=== PATIENT | female | born 1945 | race Caucasian/White ===

== ENCOUNTER 2020-03-30 09:48 | Emergency (ER) | payer OTHER, BC ==
--- NOTE | 2020-03-30 09:52 | PDOC ---
History of Present Illness - General Chief Complaint: Bleeding from Anus Stated Complaint: RECTAL BLEEDING Time Seen by Provider: 03/30/20 09:52 - History of Present Illness Initial Comments: 03/30/20 15:56 Chief complaint: Rectal bleeding HPI: Patient has been constipated for 4 days, straining to defecate without results, while on the toilet this morning noticed drops of bright red blood per rectum. Complains of pain in the rectal area well straining to defecate. Has been prescribed MiraLAX and stool softeners, but has not been taking them recently. Review of systems: No fever/chills, headache, URI symptoms, sore throat, cough, chest pain, shortness of breath, abdominal pain, nausea, vomiting, visual or focal neurologic symptoms, unsteadiness of gait. Past medical history: GERD/gastritis, high blood pressure, anxiety, depression, UTI diagnosed yesterday in the emergency room and begun on Keflex. Social history: Lives with family, no tobacco alcohol or nonprescription drugs. Family history: Reviewed and noncontributory Physical exam: Alert and oriented well-developed well-nourished no acute distress cooperative Afebrile, vital signs normal No pallor or icterus. PERRLA, ENT clear Neck supple without bruit mass or nodes Lungs clear, full breath sounds bilaterally, no wheezes rales or rhonchi CV S1-S2 normal without murmur rub or gallop pulses full and symmetric no JVD or edema no bruits no tachycardia Abdomen nondistended, bowel sounds normal. Soft without mass tenderness organomegaly. No CVAT Rectal exam: There are irritated external hemorrhoids visible, with some bleeding. There are palpable internal hemorrhoids as well. There is formed stool that feels the rectum just above the tip of the finger. There is no impaction. Stool itself is light brown, trace guaiac positive Neurological intact Impression: Constipation, bleeding hemorrhoids Plan: Symptomatic treatment of constipation, hemorrhoids, and GI follow-up. Past History - Medical History Allergies/Adverse Reactions: Allergies Allergy/AdvReac Type Severity Reaction Status Date / Time No Known Allergies Allergy Verified 03/30/20 09:49 Home Medications: Ambulatory Orders Amlodipine Besylate [Norvasc -] 5 mg PO DAILY 02/21/20 Cephalexin [Keflex] 500 mg PO TID #7 capsule 03/29/20 Acetaminophen W/ Codeine #3 [Tylenol # 3] 1 - 2 combo PO Q6H PRN #12 tablet MDD 6 03/30/20 Docusate Sodium [Colace] 100 mg PO TID #100 capsule 03/30/20 Hydrocortisone Acetate [Anusol Hc Suppository -] 25 mg RC DAILY #14 supp.rect 03/30/20 Lorazepam [Ativan] 1 mg PO ASDIR PRN 03/30/20 Mirtazapine [Remeron -] 15 mg PO DAILY 03/30/20 Polyethylene Glycol 3350 [Miralax (For Bowel Prep) -] 17 gm PO DAILY #1 bottle 03/30/20 Anemia: No Asthma: No Cancer: No Cardiac Disorders: Yes (MINOR BLOCAGE) CVA: Yes (MINI STROKE 2018) COPD: No CHF: No Dementia: No Diabetes: No GI Disorders: Yes (WT LOSS, LOSS OF APPITITE) Disorders: No HTN: Yes Hypercholesterolemia: Yes Liver Disease: No Psychiatric Problems: Yes Seizures: No Thyroid Disease: No - Surgical History Abdominal Surgery: No Appendectomy: No Cardiac Surgery: No Cholecystectomy: No Lung Surgery: No Neurologic Surgery: No Orthopedic Surgery: No - Psycho-Social/Smoking History Smoking History: Never smoked Have you smoked in the past 12 months: No ED Treatment Course - LABORATORY CBC & Chemistry Diagram: 03/30/20 10:10 03/30/20 16:05 Medical Decision Making - Medical Decision Making 03/30/20 16:02 Laxatives and enema were administered. The patient did not tolerate the enema well and it was discontinued with half the solution infused. She continues to become more agitated. Repeat rectal exam shows prolapsed hemorrhoids but otherwise unchanged. Repeat abdominal exam shows that abdomen remains soft and nontender without mass organomegaly. IV hydration will be attempted. Labs were drawn. Mild anxiolytic and analgesic administered. 03/30/20 18:23 CBC and chemistry showed no significant abnormalities. Stool is medium brown, trace heme. The patient was given IV fluids and 2 mg of morphine intravenously, which greatly improved her agitation and pain control. Spoke at length with the and son. Further history of anxiety and panic attacks was obtained. It was explained that the patient's constipation will need to be extensively addressed by her foundry worker general Dr. Claros. In the meantime, an intense regimen of increased fluid intake, increased walking and other exercise, increase dietary fiber and stool softeners, as well as hemorrhoid medications. She is discharged with family, relatively comfortable, in no intense pain or other discomfort, to follow-up with Dr. Claros. To return to ER if symptoms worsen. Discharge - Discharge Information Problems reviewed: Yes Clinical Impression/Diagnosis: Constipation Qualifiers: Constipation type: slow transit constipation Qualified Code(s): K59.01 - Slow transit constipation Hemorrhoids Qualifiers: Hemorrhoid type: unspecified Qualified Code(s): K64.9 - Unspecified hemorrhoids Condition: Improved Disposition: HOME - Admission No - Additional Discharge Information Prescriptions: Hydrocortisone Acetate [Anusol Hc Suppository -] 25 mg RC DAILY #14 supp.rect Docusate Sodium [Colace] 100 mg PO TID #100 capsule Polyethylene Glycol 3350 [Miralax (For Bowel Prep) -] 17 gm PO DAILY #1 bottle Acetaminophen W/ Codeine #3 [Tylenol # 3] 1 - 2 combo PO Q6H PRN #12 tablet MDD 6 PRN Reason: Severe Pain - Follow up/Referral Referrals: Bolivar Claros MD [Staff Physician] - 3 days - Patient Discharge Instructions Patient Printed Discharge Instructions: DI for Hemorrhoids, DI for Constipation Additional Instructions: Use medications as directed to soften the stool. Drink lots of fluids as well. Walk and exercise as much as possible. Use painkillers sparingly as they will aggravate constipation See your foundry worker general Dr. Claros for follow-up. Further evaluation and treatment will be necessary to control your problem. Print Language: MALAGASY - Post Discharge Activity
[2020-03-30 09:58] VITALS: BMI 27.8
[2020-03-30 10:15] LABS: BASO % 0.9 % (0-2.0); EOS % 0.8 % (0-4.5); HEMATOCRIT 39.3 % (32.4-45.2); HEMOGLOBIN 12.5 GM/dl (10.7-15.3); LYMPH % 25.1 % (8-40); MCH 27.9 pg (25.7-33.7); MCHC 31.7 g/dl (32.0-36.0); MEAN CELL VOLUME 87.9 fl (80-96); MEAN PLT VOLUME 9.7 fl (7.5-11.1); MONO % 7.1 % (3.8-10.2); NEUT % 66.1 % (42.8-82.8); PLATELET COUNT 219 K/MM3 (134-434); RBC 4.47 M/mm3 (3.60-5.2); RDW 14.7 % (11.6-15.6); WHITE BLOOD COUNT 5.4 K/mm3 (4.0-10.8)
[2020-03-30] MEDS ORDERED: MAGNESIUM CITRATE 300 ML BOTTLE PO ONE ×2 (10:17→15:15)
[2020-03-30] MEDS ORDERED: MAGNESIUM CITRATE 300 ML BOTTLE ONE (10:19)
[2020-03-30] MEDS ORDERED: BISACODYL 10 MG SUPP.RECT PR ONE (13:22)
[2020-03-30] MEDS ORDERED: BISACODYL 10 MG SUPP.RECT ONE (13:23)
[2020-03-30] MEDS ORDERED: CEPHALEXIN MONOHYDRATE 500 MG CAPSULE (UD) PO ONE (13:26)
[2020-03-30] MEDS ORDERED: CEPHALEXIN MONOHYDRATE 500 MG CAPSULE (UD) ONE (13:27)
[2020-03-30] MEDS ORDERED: LORazepam 1 MG TABLET PO ONE (14:41)
[2020-03-30] MEDS ORDERED: LORazepam 0.5 MG TABLET ONE (14:42)
[2020-03-30] MEDS ORDERED: SODIUM CHLORIDE 500 ML IV STA (15:53)
[2020-03-30] MEDS ORDERED: morphine CARPU-JECT 2 MG/1 ML DISP.SYRIN IVPUSH ONE (15:54)
[2020-03-30] MEDS ORDERED: morphine SULFATE 4 MG/ML VIAL ONE (16:04)
[2020-03-30 16:49] LABS: ALBUMIN 3.9 g/dl (3.4-5.0); BILIRUBIN,TOTAL 0.8 mg/dl (0.2-1); CREATININE 0.8 mg/dl (0.55-1.3); MAGNESIUM 2.1 mg/dL (1.8-2.4); POTASSIUM 3.6 mmol/L (3.5-5.1); TOT PROT 6.5 g/dl (6.4-8.2)
[2020-03-30 20:50] VITALS: BP 136/74; PULSE 78; TEMP 97.8
== END 2020-03-30 18:10 | disposition home or self-care (01) ==
LOC: FER 09:48
PROC: 3E0337Z Introduction of Electrolytic and Water Balance Substance into Peripheral Vein, Percutaneous Approach (ICD-10-PCS; principal; 2020-03-30)
PROC: 3E033GC Introduction of Other Therapeutic Substance into Peripheral Vein, Percutaneous Approach (ICD-10-PCS; principal; 2020-03-30)
DX: K59.01 Slow transit constipation (principal); K64.9 Unspecified hemorrhoids
CPT/HCPCS: 36415; 80053; 82272; 83735; 85025; 99284-25

== ENCOUNTER 2020-09-16 09:57 | Inpatient (IN) | payer OTHER, BC ==
[2020-09-16 10:24] VITALS: BMI 29.2
[2020-09-16 13:04] LABS: BASO % 2.1 % (0-2.0); EOS % 0.2 % (0-4.5); HEMOGLOBIN 15.1 GM/dl (10.7-15.3); LYMPH % 22.6 % (8-40); MCH 29.5 pg (25.7-33.7); MCHC 32.8 g/dl (32.0-36.0); MEAN CELL VOLUME 89.8 fl (80-96); MEAN PLT VOLUME 10.3 fl (7.5-11.1); MONO % 15.6 % (3.8-10.2); NEUT % 59.5 % (42.8-82.8); PLATELET COUNT 292 K/MM3 (134-434); RBC 5.11 M/mm3 (3.60-5.2); RDW 14.1 % (11.6-15.6); WHITE BLOOD COUNT 6.4 K/mm3 (4.0-10.8)
[2020-09-16 13:07] LABS: EPITHELIAL CELLS FEW /hpf; URINE HYALINE CAST 0-1 /lpf
[2020-09-16 14:05] LABS: ALBUMIN 3.7 g/dl (3.4-5.0); BILIRUBIN,TOTAL 0.4 mg/dl (0.2-1); CALCIUM 8.7 mg/dl (8.5-10); CREATININE 0.9 mg/dl (0.55-1.3); POTASSIUM 3.9 mmol/L (3.5-5.1); TOT PROT 6.6 g/dl (6.4-8.2)
[2020-09-16 14:46] LABS: PLATELET ESTIMATE ADEQUATE
[2020-09-16] MEDS ORDERED: ENOXAPARIN NA (PORCINE) 60 MG/0.6 ML DISP.SYRIN SQ ONE (20:16)
[2020-09-16] MEDS: ENOXAPARIN NA (PORCINE) 40 MG/0.4 ML DISP.SYRIN SQ SCH (20:20)
[2020-09-16 23:54] LABS: LDH 152 U/L (84-246)
[2020-09-16 23:57] LABS: N-TERMINAL BNP 35.3 pg/ml (5-125)
[2020-09-17 07:38] LABS: BASO % 0.5 % (0-2.0); EOS % 0.2 % (0-4.5); HEMATOCRIT 39.8 % (32.4-45.2); HEMOGLOBIN 13.2 GM/dL (10.7-15.3); LYMPH % 58.3 % (8-40); MCH 29.2 pg (25.7-33.7); MCHC 33.2 g/dl (32.0-36.0); MEAN CELL VOLUME 87.8 fl (80-96); MEAN PLT VOLUME 9.9 fl (7.5-11.1); MONO % 17.2 % (3.8-10.2); NEUT % 23.8 % (42.8-82.8); PLATELET COUNT 191 K/MM3 (134-434); RBC 4.53 M/mm3 (3.60-5.2); RDW 14.8 % (11.6-15.6); WHITE BLOOD COUNT 3.1 K/mm3 (4.0-10.0)
[2020-09-17 08:05] LABS: ALBUMIN 3.3 g/dl (3.4-5.0); BILIRUBIN,TOTAL 0.8 mg/dL (0.2-1); BLOOD UREA NITROGEN 15.3 mg/dL (7-18); CALCIUM 8.4 mg/dL (8.5-10.1); CREATININE 0.6 mg/dL (0.55-1.3); MAGNESIUM 2.2 mg/dL (1.8-2.4); POTASSIUM 3.7 mmol/L (3.5-5.1); TOT PROT 6.5 g/dl (6.4-8.2)
[2020-09-17 08:41] LABS: INR 1.04 (0.83-1.09); PROTHROMBIN TIME (PATIENT) 12.6 SEC (9.7-13.0)
[2020-09-17 08:44] LABS: ACTIVATED PTT 32.5 SECONDS (25.2-36.5)
[2020-09-17] MEDS ORDERED: cefTRIAXone SODIUM 1 GM VIAL ONE (09:44)
[2020-09-17] MEDS ORDERED: DEXTROSE 5%-WATER - 50 ML IVPB ONE (09:44)
[2020-09-17] MEDS: ROSUVASTATIN CA 5 MG TABLET (FP) PO SCH (09:49)
[2020-09-17] MEDS: CEFTRIAXONE 1 GM in DEXTROSE 5%-WATER - 50 ML IVPB SCH (09:49)
[2020-09-17] MEDS: amLODIPine BESYLATE 5 MG TABLET (FP) PO SCH (09:49)
[2020-09-17] MEDS: ENOXAPARIN NA (PORCINE) 40 MG/0.4 ML DISP.SYRIN SQ SCH (09:49)
[2020-09-17 10:58] LABS: PLATELET ESTIMATE NORMAL
[2020-09-17] MEDS: AZITHROMYCIN IVPB 500 MG/250 ML BAG IVPB SCH (11:00)
[2020-09-17] MEDS: MIRTAZAPINE 30 MG TABLET PO SCH (20:15)
[2020-09-18 08:22] LABS: POTASSIUM 3.8 mmol/L (3.5-5.1)
[2020-09-18 08:30] LABS: BLOOD UREA NITROGEN 14.9 mg/dL (7-18); CALCIUM 8.3 mg/dL (8.5-10.1); MAGNESIUM 2.2 mg/dL (1.8-2.4)
[2020-09-18 08:33] LABS: CREATININE 0.7 mg/dL (0.55-1.3)
[2020-09-18 08:34] LABS: PHOSPHOROUS 3.6 mg/dL (2.5-4.9)
[2020-09-18 08:40] LABS: HEMOGLOBIN 13.2 GM/dL (10.7-15.3); MCH 28.6 pg (25.7-33.7); MCHC 32.3 g/dl (32.0-36.0); MEAN CELL VOLUME 88.7 fl (80-96); MEAN PLT VOLUME 10.6 fl (7.5-11.1); PLATELET COUNT 191 K/MM3 (134-434); RBC 4.62 M/mm3 (3.60-5.2); RDW 14.6 % (11.6-15.6); WHITE BLOOD COUNT 4.7 K/mm3 (4.0-10.0)
[2020-09-18] MEDS ORDERED: cefTRIAXone SODIUM 1 GM VIAL ONE (08:58)
[2020-09-18] MEDS ORDERED: DEXTROSE 5%-WATER - 50 ML IVPB ONE (08:58)
[2020-09-18] MEDS: ENOXAPARIN NA (PORCINE) 40 MG/0.4 ML DISP.SYRIN SQ SCH (09:05)
[2020-09-18] MEDS: CEFTRIAXONE 1 GM in DEXTROSE 5%-WATER - 50 ML IVPB SCH (09:05)
[2020-09-18] MEDS: AZITHROMYCIN IVPB 500 MG/250 ML BAG IVPB SCH (09:05)
[2020-09-18] MEDS: amLODIPine BESYLATE 5 MG TABLET (FP) PO SCH (09:06)
[2020-09-18] MEDS: MIRTAZAPINE 30 MG TABLET PO SCH (09:06)
[2020-09-18] MEDS: ROSUVASTATIN CA 5 MG TABLET (FP) PO SCH (09:06)
[2020-09-18 14:30] VITALS: BP 120/66; PULSE 73; TEMP 98.3
== END 2020-09-18 17:13 | disposition home or self-care (01) | DRG 202 ==
LOC: FER 09:57 → J4S 21:30
PROVIDERS: ADMIT Internal Medicine; ATTEND Student in an Organized Health Care Education/Training Program
DX: J40 Bronchitis, not specified as acute or chronic (principal); U07.1 COVID-19; R55 Syncope and collapse; I10 Essential (primary) hypertension; I25.10 Atherosclerotic heart disease of native coronary artery without angina pectoris; E78.5 Hyperlipidemia, unspecified; F41.9 Anxiety disorder, unspecified; D70.9 Neutropenia, unspecified; M79.10 Myalgia, unspecified site
CPT/HCPCS: 36415; 71045-TC-FY; 80048; 80053; 81003; 81015; 82550; 82728; 83615; 83735; 83880; 84100; 84484; 85025; 85027; 85379; 85384; 85610; 85730; 86140; 93005; 99285-25; C9803; U0003

== ENCOUNTER 2020-11-23 09:54 | Emergency (ER) | payer OTHER, BC ==
[2020-11-23 10:02] VITALS: BP 145/86; PULSE 75; TEMP 98.6; BMI 29.2
[2020-11-23] MEDS ORDERED: DEXAMETHASONE LIQUID 0.5 MG/5 ML PO ONE (10:27)
[2020-11-23] MEDS ORDERED: DEXAMETHASONE SOD PHOSPHATE 10 MG/1 ML VIAL ONE (10:32)
== END 2020-11-23 11:15 | disposition home or self-care (01) ==
LOC: FER 09:54
DX: R59.0 Localized enlarged lymph nodes (principal); R07.0 Pain in throat; H93.90 Unspecified disorder of ear, unspecified ear
CPT/HCPCS: 87070; 87880; 99284-25; C9803; U0003

== ENCOUNTER 2021-04-05 08:21 | Emergency (ER) | payer OTHER, BC ==
[2021-04-05 08:40] VITALS: BP 134/75; PULSE 67; TEMP 98.4; BMI 30.2
[2021-04-05] MEDS ORDERED: MAG HYDROX/AL HYDROX/SIMETH 30 ML UNIT-DOSE CUP PO ONE (08:42)
[2021-04-05] MEDS ORDERED: PANTOPRAZOLE 40 MG TABLET PO ONE (08:42)
[2021-04-05] MEDS ORDERED: MAG HYDROX/AL HYDROX/SIMETH 30 ML UNIT-DOSE CUP ONE (08:46)
[2021-04-05] MEDS ORDERED: PANTOPRAZOLE 40 MG TABLET ONE (08:46)
[2021-04-05 09:20] LABS: BASO % 0.5 % (0-2.0); EOS % 0.7 % (0-4.5); HEMATOCRIT 39.9 % (32.4-45.2); HEMOGLOBIN 13.7 GM/dl (10.7-15.3); LYMPH % 26.5 % (8-40); MCH 30.3 pg (25.7-33.7); MCHC 34.3 g/dl (32.0-36.0); MEAN CELL VOLUME 88.5 fl (80-96); MEAN PLT VOLUME 10.2 fl (7.5-11.1); MONO % 7.5 % (3.8-10.2); NEUT % 64.8 % (42.8-82.8); PLATELET COUNT 227 10^3/uL (134-434); RBC 4.51 M/mm3 (3.60-5.2); RDW 13.3 % (11.6-15.6); WHITE BLOOD COUNT 6.4 K/mm3 (4.0-10.8)
[2021-04-05 09:25] LABS: ALBUMIN 3.9 g/dl (3.4-5.0); ALK PHOS 67 U/L (45-117); ANION GAP 7 MMOL/L (8-16); BILIRUBIN,TOTAL 0.9 mg/dl (0.2-1); CALCIUM 8.8 mg/dl (8.5-10); CHLORIDE 107 mmol/L (98-107); CO2 25 mmol/L (21-32); CREATININE 0.7 mg/dl (0.55-1.3); EPITHELIAL CELLS FEW /hpf; GLUCOSE,RANDOM 102 mg/dl (74-106); SGOT/AST 20 U/L (15-37); SGPT/ALT 15 U/L (13-61); SODIUM 139 mmol/L (136-145); TOT PROT 6.8 g/dl (6.4-8.2)
[2021-04-05 10:10] LABS: LIPASE 138 U/L (73-393)
== END 2021-04-05 10:50 | disposition home or self-care (01) ==
LOC: FER 08:21
DX: R10.13 Epigastric pain (principal); R11.0 Nausea; K52.9 Noninfective gastroenteritis and colitis, unspecified
CPT/HCPCS: 36415; 80053; 81003; 81015; 82550; 83690; 84484; 85025; 87086; 93005; 99284-25

== ENCOUNTER 2022-08-18 13:43 | Emergency (ER) | payer OTHER, BC ==
[2022-08-18 13:56] VITALS: BMI 31.1
[2022-08-18 17:07] LABS: BASO % 0.7 % (0-2.0); EOS % 0.2 % (0-4.5); HEMATOCRIT 43.6 % (32.4-45.2); LYMPH % 29.1 % (8-40); MCH 28.7 pg (25.7-33.7); MCHC 32.1 g/dl (32.0-36.0); MEAN CELL VOLUME 89.4 fl (80-96); MEAN PLT VOLUME 9.8 fl (7.5-11.1); MONO % 7.8 % (3.8-10.2); NEUT % 62.2 % (42.8-82.8); PLATELET COUNT 244 10^3/uL (134-434); RBC 4.88 M/mm3 (3.60-5.2); RDW 14.6 % (11.6-15.6); WHITE BLOOD COUNT 8.8 K/mm3 (4.0-10.0)
[2022-08-18 17:30] LABS: ALBUMIN 3.8 g/dl (3.4-5.0); CALCIUM 9.4 mg/dL (8.5-10.1)
[2022-08-18 17:31] LABS: BLOOD UREA NITROGEN 15.1 mg/dL (7-18); MAGNESIUM 2.4 mg/dL (1.8-2.4)
[2022-08-18 17:34] LABS: CREATININE 0.8 mg/dL (0.55-1.3)
[2022-08-18 17:35] LABS: BILIRUBIN,TOTAL 0.6 mg/dL (0.2-1); TOT PROT 7.3 g/dl (6.4-8.2)
[2022-08-18 18:15] LABS: EPI CELLS 4 /uL (0-25.1); HYALINE CASTS 0 /uL (0-3.1); URINE APPEARANCE CLEAR; URINE BACTERIA 7 /uL (0-1359); URINE BILIRUBIN NEGATIVE (NEGATIVE); URINE COLOR YELLOW; URINE GLUCOSE (UA) NEGATIVE (NEGATIVE); URINE KETONE NEGATIVE (NEGATIVE); URINE LEUK ESTERASE 1+ (NEGATIVE); URINE NITRITE NEGATIVE (NEGATIVE); URINE PROTEIN NEGATIVE (NEGATIVE); URINE RBC 6 /uL (0-23.9); URINE UROBILINOGEN 0.2 mg/dL (0.2-1.0); URINE WBC 39 /uL (0-25.8)
[2022-08-18 20:08] VITALS: PULSE 63; RESP 20; TEMP 97.5
[2022-08-18 20:47] VITALS: BP 143/75
== END 2022-08-18 20:53 | disposition home or self-care (01) ==
LOC: JER 13:43
DX: R07.9 Chest pain, unspecified (principal); I10 Essential (primary) hypertension
CPT/HCPCS: 36415; 71045-TC-FY; 80053; 81003; 83735; 84484; 85025; 87086; 93005; 93010; 99285-25

== ENCOUNTER 2022-09-08 08:56 | Emergency (ER) | payer OTHER, BC ==
[2022-09-08 09:02] VITALS: RESP 18; BMI 31.1
[2022-09-08] MEDS ORDERED: SODIUM CHLORIDE 0.9% 1000 ML INFUS.BAG IV ONE (09:02)
[2022-09-08] MEDS ORDERED: IBUPROFEN 600 MG TABLET (FP) PO ONE ×2 (09:08→09:47)
[2022-09-08 10:27] LABS: HEMATOCRIT 41.6 % (32.4-45.2); HEMOGLOBIN 13.7 G/dL (10.7-15.3); MCH 29.1 pg (25.7-33.7); MEAN CELL VOLUME 88.4 fl (80-96); MEAN PLT VOLUME 9.2 fl (7.5-11.1); PLATELET COUNT 236.2 10^3/uL (134-434); RBC 4.71 10^6/uL (3.60-5.2); RDW 14.7 % (11.6-15.6); WHITE BLOOD COUNT 10.3 10^3/uL (4.0-10.8)
[2022-09-08 10:33] LABS: ALBUMIN 3.7 g/dl (3.4-5.0); BILIRUBIN,TOTAL 0.6 mg/dl (0.2-1); CALCIUM 8.7 mg/dl (8.5-10); TOT PROT 6.8 g/dl (6.4-8.2)
[2022-09-08 10:48] VITALS: BP 109/60; PULSE 76; TEMP 98.7
== END 2022-09-08 12:06 | disposition home or self-care (01) ==
LOC: FER 08:56
DX: U07.1 COVID-19 (principal)
CPT/HCPCS: 0241U-QW; 36415; 71045-TC-FY; 80053; 85027; 99284-25

== ENCOUNTER 2022-11-12 12:54 | Emergency (ER) | payer OTHER, BC ==
[2022-11-12 13:26] VITALS: PULSE 75; RESP 16; TEMP 98.1; BMI 32.9
[2022-11-12] MEDS ORDERED: ACETAMINOPHEN 1000 MG/100 ML BAG IVPB ONE (13:40)
[2022-11-12] MEDS ORDERED: ACETAMINOPHEN 500 MG TABLET (FP) PO ONE (13:41)
[2022-11-12] MEDS ORDERED: ACETAMINOPHEN 500 MG TABLET (FP) ONE (13:54)
[2022-11-12 14:14] LABS: ALBUMIN 4.1 g/dl (3.4-5.0); ALK PHOS 79 U/L (45-117); ANION GAP 6 MMOL/L (8-16); BILIRUBIN,TOTAL 0.8 mg/dl (0.2-1); CHLORIDE 109 mmol/L (98-107); CO2 28 mmol/L (21-32); CREATININE 0.8 mg/dl (0.55-1.3); GLUCOSE,RANDOM 90 mg/dl (74-106); SGOT/AST 22 U/L (15-37); SGPT/ALT 20 U/L (13-61); SODIUM 143 mmol/L (136-145); TOT PROT 7.2 g/dl (6.4-8.2)
[2022-11-12 14:18] LABS: HEMATOCRIT 41.6 % (32.4-45.2); HEMOGLOBIN 14.3 G/dL (10.7-15.3); MCHC 34.4 g/dl (32.0-36.0); MEAN CELL VOLUME 90.2 fl (80-96); MEAN PLT VOLUME 9.3 fl (7.5-11.1); PLATELET COUNT 232.5 10^3/uL (134-434); RBC 4.61 10^6/uL (3.60-5.2); RDW 14.5 % (11.6-15.6); WHITE BLOOD COUNT 8.1 10^3/uL (4.0-10.8)
[2022-11-12 14:23] LABS: PLATELET ESTIMATE ADEQUATE
[2022-11-12] MEDS ORDERED: HYDROCHLOROTHIAZIDE 25 MG TABLET (FP) ONE (14:47)
[2022-11-12 16:10] LABS: N-TERMINAL BNP 121.8 pg/ml (5-450)
[2022-11-12 16:21] VITALS: BP 146/83
[2022-11-12] MEDS ORDERED: HYDROCHLOROTHIAZIDE 12.5 MG CAPSULE (FP) PO SCH (22:00)
== END 2022-11-12 16:34 | disposition home or self-care (01) ==
LOC: SUPCPDRO 12:54 → FER 12:54
DX: R00.2 Palpitations (principal); I10 Essential (primary) hypertension
CPT/HCPCS: 36415; 71046-TC-FY; 80053; 83880; 84443; 84484; 85027; 93005; 99285-25

== ENCOUNTER 2024-07-04 11:47 | Emergency (ER) | payer OTHER, BC ==
[2024-07-04 12:01] VITALS: RESP 16; TEMP 98.6; BMI 32.9
[2024-07-04] MEDS: SODIUM CHLORIDE 0.9% 500 ML INFUS.BAG IV ONE (12:42)
[2024-07-04 12:46] LABS: HEMATOCRIT 43.7 % (32.4-45.2); MCH 29.7 pg (25.7-33.7); MCHC 31.9 g/dl (32.0-36.0); MEAN PLT VOLUME 9.4 fl (7.5-11.1); RDW 15.2 % (11.6-15.6); WHITE BLOOD COUNT 8.5 10^3/uL (4.0-10.8)
[2024-07-04 12:56] LABS: PLATELET ESTIMATE ADEQUATE
[2024-07-04 13:15] LABS: ALBUMIN 4.1 g/dl (3.4-5.0); ALK PHOS 78 U/L (45-117); ANION GAP 8 mmol/L (4-13); BILIRUBIN,TOTAL 0.5 mg/dl (0.2-1); CALCIUM 9.3 mg/dl (8.5-10.1); CHLORIDE 108 mmol/L (98-107); CO2 26 mmol/L (21-32); CREATININE 0.8 mg/dl (0.6-1.3); GLUCOSE,RANDOM 89 mg/dl (74-106); MAGNESIUM 2.1 mg/dL (1.8-2.4); POTASSIUM 3.8 mmol/L (3.5-5.1); SGOT/AST 14 U/L (15-37); SGPT/ALT 11 U/L (7-52); SODIUM 142 mmol/L (136-145); TOT PROT 6.6 g/dl (6.4-8.2)
[2024-07-04 13:50] VITALS: BP 160/74; PULSE 66
== END 2024-07-04 13:50 | disposition home or self-care (01) ==
LOC: FER 11:47
DX: I10 Essential (primary) hypertension (principal); R53.83 Other fatigue; R53.81 Other malaise; R53.1 Weakness; R00.2 Palpitations; R51.9 Headache, unspecified; R42 Dizziness and giddiness; R11.0 Nausea; Z20.822 Contact with and (suspected) exposure to COVID-19
CPT/HCPCS: 0241U-QW; 36415; 80053; 81003; 83735; 84484; 85027; 87086; 93005; 99284-25